=== PATIENT | male | born 1970 | race Caucasian/White ===

== ENCOUNTER 2019-06-06 14:19 | Emergency (ER) | payer OTHER ==
[~2019-06-06] VITALS: Ht 170.2 cm; Wt 70.0 kg
[2019-06-06 14:38] VITALS: BP 152/89
[2019-06-06] MEDS ORDERED: LIDOCAINE 5% TRANSDERMAL PATCH TD ONE (17:00)
[2019-06-06] MEDS ORDERED: METHOCARBAMOL 500 MG TABLET PO ONE (17:00)
[2019-06-06] MEDS ORDERED: IBUPROFEN 600 MG TABLET PO ONE (17:00)
== END 2019-06-06 17:09 | disposition home or self-care (01) ==
LOC: EMS 14:20
DX: I10 Essential (primary) hypertension (principal); M54.5 Low back pain; M25.561 Pain in right knee; M25.511 Pain in right shoulder; Z98.890 Other specified postprocedural states; Z91.013 Allergy to seafood; V49.9XXA Car occupant (driver) (passenger) injured in unspecified traffic accident, initial encounter; Y93.89 Activity, other specified; Y92.488 Other paved roadways as the place of occurrence of the external cause; Y99.8 Other external cause status
CPT/HCPCS: 72100